=== PATIENT | male | born 1970 | race Caucasian/White ===

== ENCOUNTER 2017-03-04 23:37 | Emergency (ER) | payer SELFPAY ==
[~2017-03-04] VITALS: Ht 177.8 cm; Wt 93.0 kg
[2017-03-04 23:37] VITALS: BP_SYST 128
== END 2017-03-05 01:37 | disposition home or self-care (01) ==
LOC: SED 23:37
DX: S93.402A Sprain of unspecified ligament of left ankle, initial encounter (principal); X50.1XXA Overexertion from prolonged static or awkward postures, initial encounter; Y93.89 Activity, other specified; Y92.89 Other specified places as the place of occurrence of the external cause; Y99.8 Other external cause status
CPT/HCPCS: 99284